=== PATIENT | female | born 1985 | race Caucasian/White ===

== ENCOUNTER 2018-08-04 13:56 | Emergency (ER) | payer MEDICAID ==
[~2018-08-04] VITALS: Ht 165.1 cm; Wt 81.6 kg
[~2018-08-04 13:56] MED LIST: ALBU18HF2 INH
--- NOTE | 2018-08-04 14:30 | NUR ---
LOBO RA 79 from home ASTHMA "was SOB Barely able to finish sentences on arrival at their house. Given RTx now w/exp. wheezing". alert and oriented x 4, verbally responsive and able to make needs known. kept comfrotable, will continue to monitor accordingly.
[2018-08-04] MEDS ORDERED: Magnesium 1GM/D5W 100ML PREMIX 200 ML IV ONE ×2 (14:33→14:55)
[2018-08-04] MEDS ORDERED: IPRATROPIUM NEB FS 0.5 MG/2.5 ML AMPUL.NEB ONE (14:47)
[2018-08-04] MEDS ORDERED: ALBUTEROL FS 2.5 MG/3 ML VIAL.NEB ONE ×2 (14:47→17:27)
[2018-08-04] MEDS ORDERED: methylPREDNISolone SOD SUCC 125 MG/2ML VIAL ONE (14:55)
[2018-08-04] MEDS ORDERED: diphenhydrAMINE HCL 50 MG/ML VIAL ONE (14:55)
[2018-08-04] MEDS ORDERED: methylPREDNISolone SOD SUCC 125 MG/2ML VIAL IV ONE (15:00)
[2018-08-04] MEDS ORDERED: ALBUTEROL FS 2.5 MG/3 ML VIAL.NEB NEB ONE ×2 (15:00→16:30)
[2018-08-04] MEDS ORDERED: diphenhydrAMINE HCL 50 MG/ML VIAL IV ONE (15:00)
[2018-08-04] MEDS ORDERED: IV NS 0.9% 1,000 ML BAG IV ONE (15:00)
[2018-08-04] MEDS ORDERED: IPRATROPIUM NEB FS 0.5 MG/2.5 ML AMPUL.NEB NEB ONE (15:00)
[2018-08-04 15:54] LABS: APPEARANCE,URINE Clear (CLEAR); BILIRUBIN,URINE Negative (NEGATIVE); BLOOD, URINE Trace-intact Ery/uL (NEGATIVE); COLOR,URINE Yellow (YELLOW); KETONES,URINE Trace (NEGATIVE); LEUKOCYTE ESTERASE ,URINE Negative (NEGATIVE); NITRITE, URINE Negative (NEGATIVE); PH,URINE 5.5 (5.0-8.0); PROTEIN,URINE 100 mg/dl (NEGATIVE); UGLUCOSE Negative (NEGATIVE); UROBILINOGEN,URINE 0.2 EU/dL (0.2)
[2018-08-04 16:25] LABS: BACTERIA,URINE Many /HPF (None Seen); SQUAMOUS EPITHELIAL CELL,UR Many /HPF (None Seen)
[2018-08-04 16:36] LABS: BASOPHILS # (AUTO) 0.1 /CMM (0.0-0.2); BASOPHILS % (AUTO) 0.5 % (0.0-2.0); HEMATOCRIT 44 % (33-45); HEMOGLOBIN 14.4 g/dL (11.5-14.8); LYMPHOCYTES # (AUTO) 0.9 /CMM (0.8-4.8); MEAN CORPUSCULAR HGB CONC 33 g/dl (31.0-36.0); MEAN CORPUSCULAR VOLUME 99 fL (82-100); MONOCYTES # (AUTO) 0.4 /CMM (0.1-1.30); MONOCYTES % (AUTO) 3.7 % (2.0-12.0); NEUTROPHILS # (AUTO) 9.6 /CMM (1.8-8.9); NEUTROPHILS % (AUTO) 85.8 % (43.0-81.0); PLATELET COUNT (AUTO) 286 /CMM (150-450); RED BLOOD CELL COUNT(AUTO) 4.43 MIL/uL (4.0-5.2); WHITE BLOOD COUNT (AUTO) 11.2 K/uL (4.3-11.0)
[2018-08-04 16:46] LABS: CALCIUM, SERUM 7.8 mg/dL (8.5-10.1); CREATININE 0.7 mg/dL (0.6-1.3); POTASSIUM 3.8 mmol/L (3.5-5.1)
[2018-08-04] MEDS ORDERED: FLUT1BLS IH (17:18)
--- NOTE | 2018-08-04 17:42 | NUR ---
pt is assigned to [facility]#: [id number], dx: asthma exacerbation, and accepting: carmen howard np
[2018-08-04 18:33] VITALS: BP 125/71
--- NOTE | 2018-08-04 18:34 | NUR ---
Patient does not wish to proceed with medical care recommended by Dr. Gilliam. Patient given information related to possible complications, up to and including , which could occur as a result of leaving the hospital at this time. Patient verbalizes understanding of risks involved due to leaving against medical advice. Patient has signed AMA form.
== END 2018-08-04 18:34 | disposition left against medical advice (07) ==
LOC: ER 13:58 → UNDOADMIN 17:45 → TELE 17:45
DX: J45.901 Unspecified asthma with (acute) exacerbation (principal); G40.909 Epilepsy, unspecified, not intractable, without status epilepticus; J00 Acute nasopharyngitis [common cold]; R00.0 Tachycardia, unspecified; F17.210 Nicotine dependence, cigarettes, uncomplicated; F10.10 Alcohol abuse, uncomplicated; Y90.9 Presence of alcohol in blood, level not specified
CPT/HCPCS: 36415; 71045-TC; 80048-TC; 81000-TC; 84703-TC; 85025-TC; 87086-TC; J1200; J2930; J3475; J7030

== ENCOUNTER 2020-04-24 11:29 | Emergency (ER) | payer SELFPAY ==
[~2020-04-24] VITALS: Ht 165.1 cm; Wt 68.0 kg
[~2020-04-24 11:29] MED LIST changes: +FLUT1BLS IH
[2020-04-24 11:35] VITALS: BP 107/62
[2020-04-24] MEDS ORDERED: LIDOCAINE /MPF 1% VIAL 5 ML VIAL ONE (11:42)
[2020-04-24] MEDS ORDERED: CEFTRIAXONE 500 MG VIAL ONE (11:42)
[2020-04-24] MEDS ORDERED: AZITHROMYCIN 250 MG TABLET ONE (11:46)
--- NOTE | 2020-04-24 11:56 | NUR ---
Patient discharged to home in stable condition. Written and verbal after care instructions given. Patient verbalizes understanding of instruction.
[2020-04-24] MEDS ORDERED: AZITHROMYCIN 250 MG TABLET PO ONE (12:00)
[2020-04-24] MEDS ORDERED: CEFTRIAXONE 500 MG VIAL IM ONE (12:00)
== END 2020-04-24 11:58 | disposition home or self-care (01) ==
LOC: ER 11:31
DX: N34.2 Other urethritis (principal); J45.909 Unspecified asthma, uncomplicated; Z79.899 Other long term (current) drug therapy
CPT/HCPCS: 84703; 87491; 87591; 96372; 99283; J0696; J3490